=== PATIENT | male | born 1995 | race Hispanic/Latino ===

== ENCOUNTER 2021-03-23 06:51 | Emergency (ER) | payer SELFPAY ==
[2021-03-23 07:35] LABS: Absolute Lymphocytes (CBC) 3.2 K/uL (0.7-4.9); Basophils % 1.3 % (0-1.3); Lymphocytes % 16.8 % (15.3-44.8); MPV 8.9 fL (7.6-11.3); RBC Red Blood Cell Count 1.13 M/uL (4.33-5.43)
--- NOTE | 2021-03-23 07:40 | EDPHYS ---
Physician Documentation [facility] Name: Gabe Ulrich Age: 25 yrs Sex: Male : 1995 Arrival Date: 03/23/2021 Time: 07:00 Bed 6 Private MD: ED Physician Martínez Perez HPI: 03/23 07:34 This 25 yrs old Male presents to ER via Ambulatory with complaints of vomiting heike blood. 07:34 The patient presents to the emergency department vomiting blood, a large amount, coffee heike grounds in nature. Onset: The symptoms/episode began/occurred just prior to arrival, this morning. Abdominal pain: described as crampy. Modifying factors: The symptoms are alleviated by nothing, the symptoms are aggravated by nothing. Details of fall: The patient fell from an upright position, while standing, while walking. Onset: The symptoms/episode began/occurred at an unknown time. Associated injuries: The patient sustained injury to the head, neck injury, upper back injury, injury to the low back, injury to the chest, injury to the abdomen. The patient presents with confusion, decreased mental status, decreased responsiveness, trouble concentrating. Onset: The symptoms/episode began/occurred today. Possible causes: drug use, alcohol, head injury, low blood sugar. Historical: - Allergies: 07:15 Unable to obtain; rr5 - Home Meds: 07:15 Unable to obtain [Active]; rr5 - PMHx: 07:15 Unable to obtain; rr5 - PSHx: 07:15 Unable to obtain; rr5 - Immunization history:: Adult Immunizations unknown. - Social history:: Smoking status: unknown. - Family history:: not pertinent. ROS: 07:34 Neck: Negative for injury, pain, and swelling. heike 07:34 Constitutional: Positive for fatigue, malaise. 07:34 Eyes: Positive for icterus. 07:34 Cardiovascular: Positive for palpitations. 07:34 Unable to obtain ROS due to altered mental status, patient being uncooperative. Exam: 07:34 Head/Face: Normocephalic, atraumatic. Respiratory: Lungs have equal breath sounds heike bilaterally, clear to auscultation and percussion. No rales, rhonchi or wheezes noted. No increased work of breathing, no retractions or nasal flaring. 07:34 Head/face: Noted is contusion. 07:34 Eyes: Sclera: icterus. 07:34 Cardiovascular: Rate: tachycardic, Rhythm: regular, Pulses: Pulses are 4+ in bilateral radial, brachial, femoral, popliteal, posterior tibial and and dorsalis pedis arteries.. Heart sounds: normal, Edema: 1+ edema to level of left midcalf and right midcalf, JVD: is noted bilaterally, to 1 cm. 07:34 ECG was reviewed by the Attending Physician. Vital Signs: 06:50 BP 98 / 34; Pulse 109; Resp 19; Pulse Ox 99% on R/A; ea 07:18 Temp 97; ea 07:57 BP 97 / 57; Pulse 120; Resp 18; Pulse Ox 100% on R/A; tr6 [place] Coma Score: 09:18 Eye Response: to voice(3). Verbal Response: confused(4). Motor Response: localizes iw pain(5). Total: 12. Procedures: 09:44 Central Line: the site was prepped with Betadine, a triple lumen catheter was inserted, heike in the right in 2 attempts. placement was verified, by blood return, the site was dressed with using sterile technique, the patient tolerated the procedure, well. MDM: 07:19 Patient medically screened. heike 08:18 Differential diagnosis: gastritis, hemorrhagic shock, varices. Differential diagnosis: heike closed head injury, contusion, fracture, multiple trauma, sprain, CVA, electrolyte abnormality, alcohol intoxication, intracranial bleed, pneumonia, sepsis, TIA, UTI, volume depletion. Data reviewed: vital signs, nurses notes, EMS record, lab test result(s), EKG, radiologic studies, CT scan, plain films. Data interpreted: night monitor: rate is 120 beats/min, rhythm is regular, Pulse oximetry: on room air is 100 %. Test interpretation: by ED physician or midlevel provider: ECG, plain radiologic studies. Counseling: I had a detailed discussion with the patient and/or guardian regarding: the historical points, exam findings, and any diagnostic results supporting the discharge/admit diagnosis, lab results, radiology results, the need to transfer to another facility, for higher level of care, [facility] does not immediately have the required specialist. 03/23 07:16 Order name: Basic Metabolic Panel 03/23 07:16 Order name: CBC with Diff 03/23 07:16 Order name: LFT's 03/23 07:16 Order name: Magnesium; Complete Time: 09:06 03/23 07:16 Order name: NT PRO-BNP; Complete Time: 09:06 03/23 07:16 Order name: PT-INR; Complete Time: 09:08 03/23 07:16 Order name: Troponin (emerg Dept Use Only); Complete Time: 09:06 03/23 07:16 Order name: Type And Screen 03/23 07:16 Order name: Basic Metabolic Panel; Complete Time: 09:06 [facility] 03/23 07:16 Order name: CBC with Automated Diff; Complete Time: 08:18 [facility] 03/23 07:16 Order name: Liver (Hepatic) Function; Complete Time: 09:06 [facility] 03/23 07:28 Order name: Occult Blood--Ancillary 03/23 07:28 Order name: AMMONIA; Complete Time: 08:18 [facility] 03/23 07:16 Order name: XRAY Chest (1 view) 03/23 07:28 Order name: CT Traumagram (Head C Spine CAP wo con); Complete Time: 09:06 [facility] 03/23 07:32 Order name: Acetaminophen; Complete Time: 09:06 [facility] 03/23 07:32 Order name: ETOH Level; Complete Time: 08:18 [facility] 03/23 07:32 Order name: Ptt, Activated; Complete Time: 09:08 [facility] 03/23 07:32 Order name: Salicylate; Complete Time: 09:06 [facility] 03/23 07:39 Order name: Fresh Frozen Plasma [facility] 03/23 07:39 Order name: Packed RBC Leukored [facility] 03/23 07:42 Order name: Bb Add On 03/23 08:01 Order name: ABO/RH no charge [facility] 03/23 09:06 Order name: SARS-COV-2 RT PCR; Complete Time: 09:06 [facility] 03/23 07:16 Order name: EKG; Complete Time: 07:16 03/23 07:16 Order name: Cardiac monitoring; Complete Time: 09:53 03/23 07:16 Order name: EKG - Nurse/Tech; Complete Time: 07:16 03/23 07:16 Order name: IV Saline Lock; Complete Time: 07:16 03/23 07:16 Order name: Labs collected and sent; Complete Time: 07:16 ea 03/23 07:16 Order name: O2 Per Protocol; Complete Time: 07:16 ea 03/23 07:16 Order name: O2 Sat Monitoring; Complete Time: 07:17 ea 03/23 07:28 Order name: IV Saline Lock - Large Bore; Complete Time: 07:39 heike 03/23 07:28 Order name: Shaw; Complete Time: 09:56 heike 03/23 07:28 Order name: Transfuse; Complete Time: 09:53 [facility] EC:34 Rate is 121 beats/min. Rhythm is regular. QRS [place] is Normal. MS interval is normal. heike QRS interval is normal. QT interval is normal. T waves are Normal. No ST changes noted. Clinical impression: Sinus tachycardia. Interpreted by me. Reviewed by me. Administered Medications: 07:39 Drug: ProTONIX (pantoprazole) 8 mg/hr Route: IV; Rate: 25 ml/hr; Site: right tr6 antecubital; 07:49 Drug: ProTONIX (pantoprazole) 80 mg Route: IVP; Site: right antecubital; tr6 07:50 Drug: NS 0.9% 1000 ml Route: IV; Rate: 1 bolus; Site: left antecubital; tr6 07:52 Drug: Thiamine 100 mg Route: IV; Rate: bolus; Site: left hand; iw 08:25 Drug: SandoSTATIN (octreotide) 50 mcg Route: IV; Rate: calculated rate; Site: left hand;tr6 08:25 Drug: SandoSTATIN (octreotide) 25 mcg/h Route: IV; Rate: calculated rate; Site: left tr6 hand; 09:51 Drug: Ativan (LORazepam) 1 mg Route: IVP; Site: left hand; tr6 09:51 Drug: Rocephin (cefTRIAXone) 1 grams Route: IV; Rate: per protocol; Site: right femoral;tr6 09:52 Drug: Vitamin K1 (phytonadione) 10 mg Route: Sub-Q; Site: abdomen; tr6 09:53 Drug: NS 0.9% 1000 ml Route: IV; Rate: 125 ml/hr; Site: right antecubital; tr6 10:21 CANCELLED (error): Sodium Bicarbonate 1 amp IVP in Other once; (50 mL); equals 50 mEq tr6 10:21 CANCELLED (error): Sodium Bicarbonate 1 amp IVP in Other once; (50 mL); equals 50 mEq tr6 10:23 CANCELLED (error): EPINEPHrine 0.1mg/mL 1:10,000 1 mg IVP in Other once tr6 10:23 CANCELLED (error): EPINEPHrine 0.1mg/mL 1:10,000 1 mg IVP in Other once tr6 10:23 CANCELLED (error): EPINEPHrine 0.1mg/mL 1:10,000 1 mg IVP in Other once tr6 10:24 CANCELLED (error): EPINEPHrine 0.1mg/mL 1:10,000 1 mg IVP in Other once tr6 10:25 CANCELLED (error): EPINEPHrine 0.1mg/mL 1:10,000 1 mg IVP in Other once tr6 Disposition: 08:21 Critical Care:. heike Disposition: 03/23/21 07:40 Transfer ordered to Other Acute Care Facility. Diagnosis are Gastrointestinal hemorrhage, unspecified - upper, Alcoholic cirrhosis of liver without ascites, Repeated falls, Alcohol abuse, Anemia, unspecified. - Reason for transfer: Higher level of care. - Accepting physician is to icu, acute care. - Condition is Critical. - Problem is an acute exacerbation. - Symptoms have improved. Critical care time excluding procedures: 08:21 Critical care time: Bedside Care: 35 minutes, Consultation: 10 minutes, Family heike Intervention: 10 minutes. Total time: 55 minutes Signatures: Dispatcher [employer] EDMartínez Ko MD MD cha Williams, Irene, RN RN iw Antunez, Elena, RN RN ea Roque, Raymond, RN RN rr5 Francie Curtis RN RN tr6 Corrections: (The following items were deleted from the chart) 07:46 07:29 FRESH FROZEN PLASMA+BB.LAB.BRZ ordered. [facility] EDNV 07:46 07:29 ABO/RH typing ordered. [facility] 08:14 07:31 CORONAVIRUS+MR.LAB.BRZ ordered. [facility] EDNV : 10:18 Sodium Bicarbonate 1 amp IVP in Other once; (50 mL); equals 50 mEq given. tr6 tr6 10: 10:18 Sodium Bicarbonate 1 amp IVP in Other once; (50 mL); equals 50 mEq given. tr6 tr6 10:21 10:21 Sodium Bicarbonate 1 amp IVP in Other once; (50 mL); equals 50 mEq ordered. tr6 tr6 10:21 10:21 Sodium Bicarbonate 1 amp IVP in Other once; (50 mL); equals 50 mEq ordered. tr6 tr6 10:23 10:17 EPINEPHrine 0.1mg/mL 1:10,000 1 mg IVP in Other once given. tr6 tr6 10: 10:17 EPINEPHrine 0.1mg/mL 1:10,000 1 mg IVP in Other once given. tr6 tr6 10:23 10:17 EPINEPHrine 0.1mg/mL 1:10,000 1 mg IVP in Other once given. tr6 tr6 10: 10:21 EPINEPHrine 0.1mg/mL 1:10,000 1 mg IVP in Other once ordered. tr6 tr6 10:23 10:21 EPINEPHrine 0.1mg/mL 1:10,000 1 mg IVP in Other once ordered. tr6 tr6 10:23 10:22 EPINEPHrine 0.1mg/mL 1:10,000 1 mg IVP in Other once ordered. tr6 tr6 10:24 10:16 EPINEPHrine 0.1mg/mL 1:10,000 1 mg IVP in Other once given. tr6 tr6 10:24 10:21 EPINEPHrine 0.1mg/mL 1:10,000 1 mg IVP in Other once ordered. tr6 tr6 10:25 10:16 EPINEPHrine 0.1mg/mL 1:10,000 1 mg IVP in Other once given. tr6 tr6 10:25 10:22 EPINEPHrine 0.1mg/mL 1:10,000 1 mg IVP in Other once ordered. tr6 tr6 11:01 07:40 03/23/2021 07:40 Transfer ordered to Other Acute Care Facility. Diagnosis is iw Gastrointestinal hemorrhage, unspecified - upper; Alcoholic cirrhosis of liver without ascites; Repeated falls; Alcohol abuse; Anemia, unspecified. Reason for transfer: Higher level of care. Accepting physician is to icu, acute care. Condition is Critical. Problem is an acute exacerbation. Symptoms have improved. heike
--- NOTE | 2021-03-23 07:40 | ER ---
Nurse's Notes [facility] Name: Gabe Ulrich Age: 25 yrs Sex: Male : 1995 Arrival Date: 03/23/2021 Time: 07:00 Bed 6 Private MD: Diagnosis: Gastrointestinal hemorrhage, unspecified-upper;Alcoholic cirrhosis of liver without ascites;Repeated falls;Alcohol abuse;Anemia, unspecified Presentation: 03/23 06:50 Chief complaint: EMS states: Family called EMS, reported he was unresponsive, family ea stated pt was vomiting blood. Family stated pt has kidney issues and drank a six pack yesterday evening. Pt reported he has been vomiting blood for the past two weeks. Coronavirus screen: At this time, the client does not indicate any symptoms associated with coronavirus-19. Ebola Screen: No symptoms or risks identified at this time. 06:50 Method Of Arrival: Ambulatory ea 07:17 Initial Sepsis Screen: Does the patient meet any 2 criteria? Mean Arterial Pressure ea (MAP) < 65. Does the patient have a suspected source of infection? No. Patient's initial sepsis screen is negative. Risk Assessment: Do you want to hurt yourself or someone else? Patient reports no desire to harm self or others. Onset of symptoms was March 23, 2021. 07:17 Acuity: DEBBIE 3 ea 07:46 Acuity: DEBBIE 2 iw Triage Assessment: 07:17 General: Appears in no apparent distress. Behavior is drowsy. Pain: Denies pain. Neuro: ea Level of Consciousness is lethargic, Oriented to person. Respiratory: Airway is patent Respiratory effort is even, unlabored, Respiratory pattern is regular, symmetrical. Derm: Skin is dry, Skin is pale, Skin temperature is warm Bruising that is dark purple, on back and abdomen +2 pitting edema noted to los lower extremities. Historical: - Allergies: 07:15 Unable to obtain; rr5 - Home Meds: 07:15 Unable to obtain [Active]; rr5 - PMHx: 07:15 Unable to obtain; rr5 - PSHx: 07:15 Unable to obtain; rr5 - Immunization history:: Adult Immunizations unknown. - Social history:: Smoking status: unknown. - Family history:: not pertinent. Screenin:15 Abuse screen: Denies threats or abuse. Denies injuries from another. Nutritional rr5 screening: No deficits noted. Tuberculosis screening: No symptoms or risk factors identified. Fall Risk IV access (20 points). Total [place] Fall Scale indicates No Risk (0-24 pts). Assessment: 08:00 General: Appears ill, unkempt, Behavior is calm, uncooperative, Smells of alcohol. tr6 Pain: Denies pain. Neuro: Level of Consciousness is lethargic, stuporous, Reaction to noxious stimuli is. Cardiovascular: Capillary refill < 3 seconds Clubbing of nail beds is present JVD is absent Rhythm is sinus tachycardia. Cardiovascular: Edema is 3+ to left midcalf, left ankle, left foot, left toes, right midcalf, right ankle, right foot and right toes pitting to left midcalf, left ankle, left foot, left toes, right midcalf, right ankle, right foot and right toes. Respiratory: No deficits noted. Airway is patent Trachea midline Respiratory effort is even, unlabored, relaxed. GI: Last BM was March 23, 2021. Abd is soft and non tender pt cleaned of bowel incontinence. black soft stool noted and tested. guiac positive. : No deficits noted. EENT: Sclera/Cornea yellow sclera. Derm: Skin is dry, Skin is pale, Skin temperature is warm Bruising that is dark purple, pt has bruises noted over his body. left upper back, and diffusely on b/l legs and arms. Musculoskeletal: No deficits noted. 09:10 Reassessment: mother at bedside, mother signed consent for blood transfusion and FFP. iw Vital Signs: 06:50 BP 98 / 34; Pulse 109; Resp 19; Pulse Ox 99% on R/A; ea 07:18 Temp 97; ea 07:57 BP 97 / 57; Pulse 120; Resp 18; Pulse Ox 100% on R/A; tr6 [place] Coma Score: 09:18 Eye Response: to voice(3). Verbal Response: confused(4). Motor Response: localizes iw pain(5). Total: 12. ED Course: 07:00 Patient arrived in ED. bb 07:01 Shanice Deluca, RN is Primary Nurse. kg 07:08 Inserted saline lock: 18 gauge in right antecubital area, using aseptic technique. kg 07:08 Inserted saline lock: 20 gauge in left antecubital area, using aseptic technique. kg 07:15 Arm band placed on right wrist. rr5 07:16 Patient has correct armband on for positive identification. Placed in gown. Bed in low rr5 position. Call light in reach. Side rails up X2. chain dyer on. Pulse ox on. NIBP on. 07:17 Triage completed. ea 07:19 Martínez Perez MD is Attending Physician. heike 07:44 initiated a transfer with Ced Martell Rn from the [facility]. eb 07:49 Inserted saline lock: 18 gauge in left hand, using aseptic technique. Blood collected. tr6 07:50 No provider procedures requiring assistance completed. tr6 07:[address] by charge operator and CT. tr6 07:58 XRAY Chest (1 view) In Process Unspecified. EDMS 08:23 CT Traumagram (Head C Spine CAP wo con) In Process Unspecified. EDMS 08:37 Ced called from the [facility] to decline the patient in transfer eb due to being at capacity in the [facility] and [facility] locations. 08:46 initiated a transfer with Maggie from the [facility] [place]. eb 08:[address] Perez with Rody Hankins from the [facility] Transfer Center. eb 09:05 connected the music therapy teacher filler leaf cutter long for [facility] with Dr. Perez for patient transfer consultation. 09:11 administrative approval given by Maggie Sheets Rn/ patient has been accepted to the [facility] transplant ICU/ Dr. Patton has accepted the patient in transfer/ report to be called to [phone]/ Maggie from the transfer center will dispatch their helicopter and someone will call us with an eta. 09:50 Inserted right femoral triple lumen central line placed by MD Brianne Perez. OK to use tr6 access per MD Perez. Patient maintains SpO2 saturation greater than 95% on room air. 09:54 Shaw cath inserted, using sterile technique, 16 Fr., by co, balloon inflated, to tr6 gravity drainage, other inserted by CLARICE Curtis with MD Perez present, urine returned. no specimen collected at this time. site clean, dry, and intact. stat lock placed to left upper thigh. 10:07 Patient transferred, IV remains in place. intact. tr6 11:00 Ramnanan, Francie, RN is Primary Nurse. iw Administered Medications: 07:39 Drug: ProTONIX (pantoprazole) 8 mg/hr Route: IV; Rate: 25 ml/hr; Site: right tr6 antecubital; 07:49 Drug: ProTONIX (pantoprazole) 80 mg Route: IVP; Site: right antecubital; tr6 07:50 Drug: NS 0.9% 1000 ml Route: IV; Rate: 1 bolus; Site: left antecubital; tr6 07:52 Drug: Thiamine 100 mg Route: IV; Rate: bolus; Site: left hand; iw 08:25 Drug: SandoSTATIN (octreotide) 50 mcg Route: IV; Rate: calculated rate; Site: left hand;tr6 08:25 Drug: SandoSTATIN (octreotide) 25 mcg/h Route: IV; Rate: calculated rate; Site: left tr6 hand; 09:51 Drug: Ativan (LORazepam) 1 mg Route: IVP; Site: left hand; tr6 09:51 Drug: Rocephin (cefTRIAXone) 1 grams Route: IV; Rate: per protocol; Site: right femoral;tr6 09:52 Drug: Vitamin K1 (phytonadione) 10 mg Route: Sub-Q; Site: abdomen; tr6 09:53 Drug: NS 0.9% 1000 ml Route: IV; Rate: 125 ml/hr; Site: right antecubital; tr6 10:21 CANCELLED (error): Sodium Bicarbonate 1 amp IVP in Other once; (50 mL); equals 50 mEq tr6 10:21 CANCELLED (error): Sodium Bicarbonate 1 amp IVP in Other once; (50 mL); equals 50 mEq tr6 10:23 CANCELLED (error): EPINEPHrine 0.1mg/mL 1:10,000 1 mg IVP in Other once tr6 10:23 CANCELLED (error): EPINEPHrine 0.1mg/mL 1:10,000 1 mg IVP in Other once tr6 10:23 CANCELLED (error): EPINEPHrine 0.1mg/mL 1:10,000 1 mg IVP in Other once tr6 10:24 CANCELLED (error): EPINEPHrine 0.1mg/mL 1:10,000 1 mg IVP in Other once tr6 10:25 CANCELLED (error): EPINEPHrine 0.1mg/mL 1:10,000 1 mg IVP in Other once tr6 Outcome: 07:40 ER care complete, transfer ordered by MD. burroughs 09:53 Transferred by helicopter tr6 10:05 Transferred tr6 10:05 critical 10:05 Instructed on follow up and referral plans. the need for transfer. 10:05 Critical Care visit due to low hgb. instructions on need for transfer reviewed with pts mother by MD Perez. pt transported by life flight. 2 u PRBC and 2 u FFP infused. 11:01 Patient left the ED. iw Signatures: Dispatcher [employer] EDMS Martínez Perez MD MD cha Ballard, Brenda, RN RN bb Hannah Morris, CLARICE ONEIL iw Portia Posada RN Cheyanne Givens ea, Raymond RN RN rr5 Francie Curtis RN RN tr6 Shanice Deluca RN RN kg Corrections: (The following items were deleted from the chart) 07:20 07:17 Derm: Skin is dry, Skin is pale, Skin temperature is warm Bruising that is dark ea purple, on back and abdomen ea 10:21 08:36 EPINEPHrine 0.1mg/mL 1:10,000 1 mg IVP in Other tr6 tr6 10: 08:42 EPINEPHrine 0.1mg/mL 1:10,000 1 mg IVP in Other tr6 tr6 10: 08:45 EPINEPHrine 0.1mg/mL 1:10,000 1 mg IVP in Other tr6 tr6 10: 08:38 Sodium Bicarbonate 1 amp IVP in Other tr6 tr6 10: 08:42 Sodium Bicarbonate 1 amp IVP in Other tr6 tr6 10:22 08:32 EPINEPHrine 0.1mg/mL 1:10,000 1 mg IVP in Other tr6 tr6 10: 08:38 EPINEPHrine 0.1mg/mL 1:10,000 1 mg IVP in Other tr6 tr6 10: 08:32 CPR assessment: intubated, pale, pt arrived to ED, CPR in progress via vickie tr6 device. pt transferred to ED stretcher and CPR continued. 5 rounds of epi given. 2 doses of calcium given. 2 doses of bi carb given. tr6
[2021-03-23 07:42] LABS: Hematocrit 11.4 % (39.6-49.0)
[2021-03-23] MEDS ORDERED: ONDANSETRON 4 MG/2 ML VIAL ONE ×2 (07:46→08:09)
[2021-03-23] MEDS ORDERED: NA CHLORIDE 0.9% 100 ML ONE (07:47)
[2021-03-23] MEDS ORDERED: PANTOPRAZOLE 40 MG INJ ONE (07:47)
[2021-03-23] MEDS ORDERED: OCTREOTIDE ACETATE 100 MCG/ML ONE (07:48)
[2021-03-23] MEDS ORDERED: NA CHLORIDE 0.9% 250 ML ONE ×2 (07:50→09:31)
[2021-03-23 07:57] LABS: Protime INR 2.04
[2021-03-23] MEDS ORDERED: NA CHLORIDE 0.9% 2,000 ML ONE (07:59)
[2021-03-23] MEDS ORDERED: VITAMIN K (ADULT) 10 MG/ML ONE (07:59)
[2021-03-23] MEDS ORDERED: OCTREOTIDE 500 MCG in NA CHLORIDE 0.9% 500 ML IV SCH (08:00)
[2021-03-23] MEDS ORDERED: LORazepam 2 MG/ML VIAL ONE ×2 (08:09→08:13)
[2021-03-23] MEDS ORDERED: THIAMINE 200 MG/2 ML INJ ONE (08:10)
[2021-03-23 08:16] LABS: ALT/SGPT 30 U/L (12-78); AST/SGOT 124 U/L (15-37); Albumin 1.7 g/dL (3.4-5.0); Alkaline Phosphatase 151 U/L (45-117); BUN Blood Urea Nitrogen 40 mg/dL (7-18); Bicarbonate 24 mmol/L (21-32); Bilirubin Total 2.5 mg/dL (0.2-1.0); Glucose Level 96 mg/dL (74-106); Magnesium 2.3 mg/dL (1.8-2.4); NT PRO-BNP 90 pg/mL (<125); Potassium 5.1 mmol/L (3.5-5.1); Sodium Level 138 mmol/L (136-145); Troponin (Emerg Dept Use Only) 0.07 ng/mL (0.0-0.045)
--- NOTE | 2021-03-23 08:37 | RAD REPORT ---
EXAM DESCRIPTION: CT - Head C Spine Cap Wo Con - 03/23/2021 8:23 am TECHNIQUE: Computed axial tomography of the head and cervical spine was obtained. Coronal and sagitt al reconstruction was performed Computed axial tomography of the chest, abdomen and pelvis was obtained. Contrast was not requested. All CT scans are performed using dose optimization technique as appropriate and may include automated exposure control or mA/KV adjustment according to patient size. CLINICAL HISTORY: Head and neck pain. With chest and abdominal pain COMPARISON: None FINDINGS: An intracranial bleed is not seen. The ventricles are normal in caliber. An extra-axial fluid collection is not noted. . Fluid within the sinuses/mastoids is not seen. A cervical fracture is not seen. No dislocation is noted. The evaluation of mediastinum, roland, vessels, solid organs and bowel are limited secondary to the lac k of contrast administration. A mediastinal hematoma is not noted. A pleural effusion is not seen. A lung contusion is not present. Cirrhotic liver. Pancreas is normal size. Mild stranding within the peripancreatic fat. The spleen, adrenals and kidneys are unremarkable. Mild thickening of the wall most of the colon. Small amount of ascites IMPRESSION: 1. No acute intracranial abnormality is seen. 2. A cervical fracture is not visualized. If the patient continues have symptoms to suggest intracran ial/spinal cord pathology MRI be recommended 3. Cirrhosis 4. Mild pancreatitis 5. Apparent thickening of the wall of most of the colon probably secondary to incomplete distention o r hypoalbuminemia. Mild colitis can also have this appearance.
[2021-03-23] MEDS ORDERED: CEFTRIAXONE/SWI 1gm 1 GM/10 ML SYR ONE (09:49)
--- NOTE | 2021-03-23 11:11 | RAD REPORT ---
EXAM DESCRIPTION: Trupti Single View03/23/2021 8:00 am CLINICAL HISTORY: Chest pain COMPARISON: none FINDINGS: The lungs appear clear of acute infiltrate. The heart is normal size IMPRESSION: No acute abnormalities displayed
[2021-03-23 11:12] VITALS: TEMP 97
[2021-03-23 11:14] VITALS: BP 97/57; O2SAT 100
--- NOTE | 2021-03-24 15:51 | EKG ---
Test Date: 2021-03-23 Test Time: 07:18:49 Annual Giving Director: TAMARA MEASUREMENT RESULTS: Intervals: Rate: 106 IA: 130 QRSD: 78 QT: 364 QTc: 483 [place]: P: 64 IA: 130 QRS: 50 T: 52 INTERPRETIVE STATEMENTS: Sinus tachycardia Otherwise normal ECG No previous ECG available for comparison Electronically Signed On 03-24-21 15:47:25 CDT by Kedar Muller
== END 2021-03-23 11:01 ==
LOC: ER 06:51 → EDBD 06:51 → ER 11:01
DX: K92.0 Hematemesis (principal); K70.30 Alcoholic cirrhosis of liver without ascites; F10.10 Alcohol abuse, uncomplicated; D64.9 Anemia, unspecified; R29.6 Repeated falls; Y90.1 Blood alcohol level of 20-39 mg/100 ml; Z20.822 Contact with and (suspected) exposure to COVID-19
CPT/HCPCS: 36415; 51702; 70450; 71045; 71250; 72125; 80048; 80076; 80320; 80329; 82140; 82272; 83735; 83880; 84484; 85025; 85610; 85730; 86850; 86900; 86901; 93005; 96372; 99285; C9113; J0696; J2354; J2405; J3411; J3430; J7030; J7040; J7050; P9016; P9059; U0003

== ENCOUNTER 2021-11-12 18:15 | Emergency (ER) | payer OTHER, SELFPAY ==
--- OUTSIDE RECORDS SUMMARY | 2021-11-12 18:17 | XMS REPORT | Continuity of Care Document ---
:[address] [facility] t Address [address] [place] [address] [address] [place] [address] Care Team Providers Name Role Phone Chuck Flores MD Attending Clinician Ligia LUO Attending Clinician Unavailable LORENA AWAD Admitting Clinician Unavailable Payers Payer Name Policy Type Policy Number Effective Date Expiration Date S ource Problems This patient has no known problems. Allergies, Adverse Reactions, Alerts Allergy Allergy Status Severity Reaction(s) Onset Inactive Treating Comm ents Source Name Type Date Date Clinician NO KNOWN Drug Active [facility] Social [facility] Social Habit Start Date Stop Date Quantity Comments Source Sex Assigned At [birth year] [facility] 00:00:00 00:00:00 Smoking Status Start Date Stop Date Source Tobacco smoking consumption unknown [facility] Medications This patient has no known medications. Procedures This patient has no known procedures. Encounters Start End Encounter Admission Attending Care Care Encounter Source Date/Time Date/Time Type Type Clinicians Facility Department ID 2021-03-23 2021-03-23 EXT [facility] OP CHERYL Flores MSRDP [id number] [place] 00:00:00 00:00:00 Chuck Martinez LOCATION [id number] [facility] [id number] 2021-03-14 2021-03-14 Outpatient X NERI LUO [facility] [id number] [facility] 21:08:00 21:08:00 MAURI [facility] Results This patient has no known results.
[2021-11-12] MEDS ORDERED: NA CHLORIDE 0.9% 250 ML ONE (18:36)
[2021-11-12] MEDS ORDERED: PANTOPRAZOLE 40 MG INJ ONE ×2 (18:36)
[2021-11-12] MEDS ORDERED: NA CHLORIDE 0.9% 1,000 ML ONE (18:37)
[2021-11-12] MEDS ORDERED: ONDANSETRON 4 MG/2 ML VIAL ONE ×2 (18:40→18:55)
[2021-11-12 18:45] LABS: Absolute Lymphocytes (CBC) 1.9 K/uL (0.7-4.9); Hematocrit 23.3 % (39.6-49.0); Lymphocytes % 18.1 % (15.3-44.8); MPV 7.3 fL (7.6-11.3); Protime INR 1.39; RBC Red Blood Cell Count 2.83 M/uL (4.33-5.43)
[2021-11-12] MEDS ORDERED: OCTREOTIDE ACETATE 100 MCG/ML ONE (18:46)
[2021-11-12] MEDS ORDERED: OCTREOTIDE 500 MCG in NA CHLORIDE 0.9% 500 ML IV SCH (19:00)
[2021-11-12] MEDS ORDERED: NA CHLORIDE 0.9% 0 ML ONE (19:15)
[2021-11-12 19:19] LABS: ALT/SGPT 31 U/L (12-78); AST/SGOT 118 U/L (15-37); Albumin 1.7 g/dL (3.4-5.0); Alkaline Phosphatase 136 U/L (45-117); BUN Blood Urea Nitrogen 68 mg/dL (7-18); Bicarbonate 20 mmol/L (21-32); Bilirubin Direct 0.8 mg/dL (0-0.2); Bilirubin Total 1.4 mg/dL (0.2-1.0); Glucose Level 122 mg/dL (74-106); Magnesium 2.2 mg/dL (1.8-2.4); NT PRO-BNP 53 pg/mL (<125); Potassium 4.7 mmol/L (3.5-5.1); Protein, Total 6.4 g/dL (6.4-8.2); Sodium Level 132 mmol/L (136-145)
--- NOTE | 2021-11-12 19:47 | EDPHYS ---
Physician Documentation [facility] Name: Gabe Ulrich Age: 26 yrs Sex: Male : 1995 Arrival Date: 11/12/2021 Time: 18:19 Bed 4 Private MD: ED Physician Martínez Perez HPI: 11/12 18:36 This 26 yrs old Male presents to ER via EMS with complaints of GI Bleeding. kdr 18:36 The patient presents to the emergency department vomiting blood, a moderate amount. He kdr reports he has been vomiting blood for 3 days with dark-colored emesis and black tarry stools. EMS reported his blood pressure was 88/45 and that he had been taking a lot of Tylenol recently for his stomach pain. Historical: - Allergies: 18:30 No Known Allergies; jd3 - Home Meds: 18:30 Unable to obtain [Active]; jd3 - PMHx: 18:30 Unable to Obtain; jd3 - PSHx: 18:30 Unable to Obtain; jd3 - Immunization history:: Adult Immunizations unknown. - Social history:: Smoking status: unknown. ROS: 19:41 Constitutional: Negative for fever, chills, and weight loss, Eyes: Negative for injury, heike pain, redness, and discharge, ENT: Negative for injury, pain, and discharge, Neck: Negative for injury, pain, and swelling, Cardiovascular: Negative for chest pain, palpitations, and edema, Respiratory: Negative for shortness of breath, cough, wheezing, and pleuritic chest pain, Back: Negative for injury and pain, : Negative for injury, bleeding, discharge, and swelling, MS/Extremity: Negative for injury and deformity, Skin: Negative for injury, rash, and discoloration, Neuro: Negative for headache, weakness, numbness, tingling, and seizure, Psych: Negative for depression, anxiety, suicide ideation, homicidal ideation, and hallucinations, Allergy/Immunology: Negative for hives, rash, and allergies, Endocrine: Negative for neck swelling, polydipsia, polyuria, polyphagia, and marked weight changes. 19:41 Abdomen/GI: Positive for nausea, vomiting, abdominal cramps, hematemesis. 19:41 Neuro: Positive for weakness. Exam: 19:41 Constitutional: This is a well developed, well nourished patient who is awake, alert, heike and in no acute distress. Head/Face: Normocephalic, atraumatic. Eyes: Pupils equal round and reactive to light, extra-ocular motions intact. Lids and lashes normal. Conjunctiva and sclera are non-icteric and not injected. Cornea within normal limits. Periorbital areas with no swelling, redness, or edema. ENT: Nares patent. No nasal discharge, no septal abnormalities noted. Tympanic membranes are normal and external auditory canals are clear. Oropharynx with no redness, swelling, or masses, exudates, or evidence of obstruction, uvula midline. Mucous membranes moist. Neck: Trachea midline, no thyromegaly or masses palpated, and no cervical lymphadenopathy. Supple, full range of motion without nuchal rigidity, or vertebral point tenderness. No Meningismus. Chest/axilla: Normal chest wall appearance and motion. Nontender with no deformity. No lesions are appreciated. Cardiovascular: Regular rate and rhythm with a normal S1 and S2. No gallops, murmurs, or rubs. Normal PMI, no JVD. No pulse deficits. Respiratory: Lungs have equal breath sounds bilaterally, clear to auscultation and percussion. No rales, rhonchi or wheezes noted. No increased work of breathing, no retractions or nasal flaring. Back: No spinal tenderness. No costovertebral tenderness. Full range of motion. Male : Normal genitalia with no discharge or lesions. Skin: Warm, dry with normal turgor. Normal color with no rashes, no lesions, and no evidence of cellulitis. MS/ Extremity: Pulses equal, no cyanosis. Neurovascular intact. Full, normal range of motion. Neuro: Awake and alert, GCS 15, oriented to person, place, time, and situation. Cranial nerves II-XII grossly intact. Motor strength 5/5 in all extremities. Sensory grossly intact. Cerebellar exam normal. Normal gait. Psych: Awake, alert, with orientation to person, place and time. Behavior, mood, and affect are within normal limits. 19:41 ECG was reviewed by the Attending Physician. 19:41 Abdomen/GI: Inspection: abdomen appears normal, Bowel sounds: normal, Palpation: mild abdominal tenderness, in all quadrants, Rectal exam: rectal tone normal, Stool: guaiac positive, black, hemorrhoid(s), are not appreciated, mass, is not appreciated, swelling, is not appreciated, Liver: is enlarged, Hernia: not appreciated. Vital Signs: 18:30 BP 93 / 42; Pulse 98; Resp 16 S; Temp 100.6(TE); Pulse Ox 99% on R/A; Pain 10/10; jd3 19:01 BP 118 / 50; Pulse 111; Resp 18; Pulse Ox 100% on R/A; ld1 19:25 BP 114 / 68; Pulse 107; Resp 15; Temp 100(O); Pulse Ox 100% ; mk 19:34 Weight 80 kg; mw2 19:56 BP 118 / 69; Pulse 110; Resp 16; Temp 100.0(TE); Pulse Ox 100% on R/A; iw 20:15 BP 123 / 62; Pulse 108; Resp 13; Pulse Ox 100% ; mk 20:30 BP 128 / 62; Pulse 109; Resp 14; Pulse Ox 100% ; mk 20:45 BP 109 / 54; Pulse 112; Resp 17; Pulse Ox 100% ; mk 21:00 BP 111 / 50; Pulse 117; Resp 11; Pulse Ox 100% ; mk 21:15 BP 112 / 64; Pulse 116; Resp 11; Pulse Ox 98% ; mk 21:30 BP 122 / 62; Pulse 114; Resp 18; Pulse Ox 100% ; mk 21:39 BP 89 / 60; Pulse 109; Resp 18; Temp 101.0(O); Pulse Ox 100% ; al4 21:44 BP 97 / 63; Pulse 114; Resp 15 S; Temp 100.6; Pulse Ox 100% on R/A; al4 21:49 BP 119 / 57; Pulse 111; Resp 14 S; Temp 100.8; Pulse Ox 100% ; al4 Mira Coma Score: 20:15 Eye Response: spontaneous(4). Verbal Response: oriented(5). Motor Response: obeys mk commands(6). Total: 15. 20:30 Eye Response: spontaneous(4). Verbal Response: oriented(5). Motor Response: obeys mk commands(6). Total: 15. 20:45 Eye Response: spontaneous(4). Verbal Response: oriented(5). Motor Response: obeys mk commands(6). Total: 15. 21:00 Eye Response: spontaneous(4). Verbal Response: oriented(5). Motor Response: obeys mk commands(6). Total: 15. 21:15 Eye Response: spontaneous(4). Verbal Response: oriented(5). Motor Response: obeys mk commands(6). Total: 15. 21:30 Eye Response: spontaneous(4). Verbal Response: oriented(5). Motor Response: obeys mk commands(6). Total: 15. 21:45 Eye Response: spontaneous(4). Verbal Response: oriented(5). Motor Response: obeys mk commands(6). Total: 15. Procedures: 19:16 Central Line: the site was prepped with Betadine, in sterile fashion, a triple lumen cp catheter was inserted, in the right femoral vein, in 1 attempts. placement was verified, by blood return, the site was dressed with using sterile technique, the patient tolerated the procedure, well. MDM: 19:18 Patient medically screened. [facility] 11/13 18:22 Data reviewed: vital signs, nurses notes, lab test result(s), radiologic studies. kdr Counseling: I had a detailed discussion with the patient and/or guardian regarding: the historical points, exam findings, and any diagnostic results supporting the discharge/admit diagnosis, lab results, radiology results, the need for further work-up and treatment in the hospital. 11/12 18:25 Order name: Basic Metabolic Panel; Complete Time: 19:38 11/12 18:25 Order name: CBC with Diff; Complete Time: 19:35 11/12 18:25 Order name: LFT's; Complete Time: 19:38 11/12 18:25 Order name: Magnesium; Complete Time: 19:38 11/12 18:25 Order name: NT PRO-BNP; Complete Time: 19:38 11/12 18:25 Order name: PT-INR; Complete Time: 19:38 11/12 18:25 Order name: Troponin HS; Complete Time: 19:38 11/12 18:25 Order name: Type And Screen 11/12 18:25 Order name: AMMONIA; Complete Time: 19:06 11/12 18:25 Order name: ETOH Level; Complete Time: 19:38 11/12 18:31 Order name: Acetaminophen la1 11/12 18:31 Order name: Salicylate la11/12 18:48 Order name: COVID-19 SARS RT PCR (Document "Date of Onset" if Symptomatic); Complete bd Time: 20:50 11/12 19:00 Order name: PR[facility] 11/12 18:25 Order name: XRAY Chest (1 view) 11/12 19:03 Order name: RBC Leukoreduced (Pheresis 2) EDME 11/12 20:17 Order name: Fresh Frozen Plasma [facility] 11/12 18:25 Order name: EKG; Complete Time: 18:25 11/12 18:25 Order name: Cardiac monitoring; Complete Time: 19:09 11/12 18:25 Order name: EKG - Nurse/Tech; Complete Time: 19: 11/12 18:25 Order name: IV Saline Lock; Complete Time: 19: 11/12 18:25 Order name: Labs collected and sent; Complete Time: 19: 11/12 18:25 Order name: O2 Per Protocol; Complete Time: 18:33 11/12 18:25 Order name: O2 Sat Monitoring; Complete Time: 18:33 iw EC/16 19:41 Rate is 108 beats/min. Rhythm is regular. QRS Swiss is Normal. LA interval is normal. heike QRS interval is normal. QT interval is normal. No Q waves. T waves are Normal. No ST changes noted. Clinical impression: Sinus tachycardia. Interpreted by me. Reviewed by me. Administered Medications: 18:41 Drug: Zofran (Ondansetron) 4 mg Route: IVP; Site: right antecubital; jd3 20:00 Follow up: Response: No adverse reaction 18:42 Drug: NS 0.9% 1000 ml Route: IV; Rate: 1 bolus; Site: right antecubital; jd3 20:00 Follow up: Response: No adverse reaction; IV Status: Completed infusion; IV Intake: mk 1000ml 18:44 Drug: ProTONIX (pantoprazole) 80 mg Route: IVP; Site: right antecubital; iw 19:05 Follow up: Response: No adverse reaction mk 18:44 Drug: ProTONIX (pantoprazole) 8 mg/hr Route: IV; Rate: 25 ml/hr; Site: right iw antecubital; 21:45 Follow up: Response: No adverse reaction; IV Status: Infusion continued upon transfer; IV Intake: 75ml 18:50 Drug: Octreotide 50 mcg Route: IV; Rate: calculated rate; Site: left antecubital; jd3 21:00 Follow up: Response: No adverse reaction mk 21:00 Follow up: Response: No adverse reaction; IV Status: Completed infusion; IV Intake: 10mlmk 19:00 Drug: Zofran (Ondansetron) 4 mg Route: IVP; Site: right antecubital; jd3 20:00 Follow up: Response: No adverse reaction mk 19:10 Drug: Octreotide Infusion (50 mcg/hr) - (Octreotide 500 mcg, NS 0.9% 500 ml) Route: IV; ke1 Rate: 50 ml/hr; Site: left antecubital; 21:45 Follow up: Response: No adverse reaction; IV Status: Infusion continued upon transfer; mk IV Intake: 150ml 20:23 Drug: Rocephin (cefTRIAXone) 1 grams Route: IV; Rate: per protocol; Site: right femoral;al4 20:23 Follow up: IV Status: Completed infusion; IV Intake: 10ml al4 20:53 Follow up: Response: No adverse reaction; IV Status: Completed infusion; IV Intake: mk 100ml 21:00 Follow up: Response: No adverse reaction al4 20:42 Not Given (Not given on dayshift - zofran given instead. patient denies nausea at this al4 time ): Phenergan (promethazine) 12.5 mg IVP once 21:17 Drug: Vitamin K1 (phytonadione) 10 mg Route: Sub-Q; Site: right lower abdomen; al4 21:50 Follow up: Response: No adverse reaction al4 21:50 Follow up: Response: No adverse reaction mk Disposition: 19:43 Co-signature as Attending Physician, Martínez ePrez MD I agree with the assessment and heike plan of care. Disposition Summary: 11/12/21 19:46 Transfer Ordered Transfer Location: [facility] heike Reason: Higher level of care heike Condition: Serious heike Problem: an acute exacerbation heike Symptoms: have worsened heike Accepting Physician: to icu(11/12/21 22:16) al4 Diagnosis - GI Bleed/ Gastrointestinal hemorrhage, unspecified - upper heike - Alcohol abuse heike Forms: - Medication Reconciliation Form heike - SBAR form heike Signatures: Dispatcher [employer] EDMS ChrisMartínez MD MD cha Rittger, Kevin, MD MD kdr Williams, Irene RN RN iw Ramone Rivas, SOCIAL STUDIES DEPARTMENT CHAIR-C SOCIAL STUDIES DEPARTMENT CHAIR-Cla1 Martínez Muro PA PA cp Davies, Jonathon, RN RN jd3 Aaron Juan Kouassi, RN RN ke1 Rosemarie Arita RN mk Corrections: (The following items were deleted from the chart) 19: 19:01 Packed RBC Leukored ordered. EDMS EDMS 19:01 ABO/RH typing ordered. EDMS EDMS : 19:01 Antibody Screen ordered. EDMS EDMS 22:16 19:46 to icu heike al4
--- NOTE | 2021-11-12 19:47 | ER ---
Nurse's Notes [facility] Name: Gabe Ulrich Age: 26 yrs Sex: Male : 1995 Arrival Date: 11/12/2021 Time: 18:19 Bed 4 Private MD: Diagnosis: GI Bleed/ Gastrointestinal hemorrhage, unspecified-upper;Alcohol abuse Presentation: 11/12 18:24 Chief complaint: EMS states: "pt reported that he has been vomiting X 3 days with dark jd3 colored emesis and black tarry stools. low blood pressure 88/44. 22 G left forearm and 300 ml NS given. he also reported taking 'a lot' of Tylenol recently for his stomach pain.". Coronavirus screen: At this time, the client does not indicate any symptoms associated with coronavirus-19. Ebola Screen: No symptoms or risks identified at this time. Initial Sepsis Screen: Does the patient meet any 2 criteria? No. Patient's initial sepsis screen is negative. Does the patient have a suspected source of infection? No. Patient's initial sepsis screen is negative. Risk Assessment: Do you want to hurt yourself or someone else? Patient reports no desire to harm self or others. Onset of symptoms was November 09, 2021. 18:24 Method Of Arrival: EMS: [facility] jd3 18:24 Acuity: DEBBEI 2 jd3 Historical: - Allergies: 18:30 No Known Allergies; jd3 - Home Meds: 18:30 Unable to obtain [Active]; jd3 - PMHx: 18:30 Unable to Obtain; jd3 - PSHx: 18:30 Unable to Obtain; jd3 - Immunization history:: Adult Immunizations unknown. - Social history:: Smoking status: unknown. Screenin:33 Abuse screen: Denies threats or abuse. Nutritional screening: No deficits noted. jd3 Tuberculosis screening: No symptoms or risk factors identified. Fall Risk Ambulatory Aid- None/Bed Rest/Nurse Assist (0 pts). Gait- Normal/Bed Rest/Wheelchair (0 pts) Mental Status- Oriented to own ability (0 pts). Total Mendiola Fall Scale indicates No Risk (0-24 pts). Assessment: 18:30 Reassessment: Upon arrival to ER pt was hypotensive 74/54. Notified ERP. Administered ld1 1L NS. 18:30 Reassessment: verbal consent received via translation line for blood transfusion, ot iw unable to sign consent form at this time. 18:31 General: Appears uncomfortable, Behavior is cooperative, appropriate for age. Pain: jd3 Complains of pain in abdomen Quality of pain is described as sharp, tender. Neuro: Level of Consciousness is awake, alert, obeys commands, Oriented to person, place, time, situation. Cardiovascular: Denies chest pain, Rhythm is sinus tachycardia. Respiratory: Airway is patent Respiratory effort is even, unlabored, Respiratory pattern is regular, symmetrical. GI: Abdomen is flat, non-distended, Reports dark colored emesis and black tarry stools. : No signs and/or symptoms were reported regarding the genitourinary system. EENT: No signs and/or symptoms were reported regarding the EENT system. Derm: Skin is intact, Skin is dry, Skin is pale, Skin temperature is warm. Musculoskeletal: Circulation, motion, and sensation intact. Range of motion: intact in all extremities. 18:50 Reassessment: ERP at bedside assessing patient. ld1 19:00 Reassessment: Central line placed. Bright red emesis noted - 500mL. ld1 19:00 Reassessment: BP 118/50. ld1 19:25 Reassessment: 2 units PRBC infused emergently to central line, ordered by Dr. Menjivar, iw blood verified with Milana Basilio RN. 19:25 General: Appears uncomfortable, Behavior is cooperative. Pain: Denies pain. Neuro: mk Level of Consciousness is awake, alert, obeys commands, Oriented to person, place, time, situation. Cardiovascular: Heart tones S1 S2 present Capillary refill < 3 seconds in bilateral fingers toes JVD is absent Patient's skin is warm and dry. Pulses are 2+ in right radial artery, right dorsalis pedis artery, left radial artery and left dorsalis pedis artery Rhythm is sinus tachycardia. Respiratory: Airway is patent Trachea midline Respiratory effort is even, unlabored, Respiratory pattern is regular, symmetrical, Breath sounds are clear. GI: Abdomen is flat, non-distended, Pt is actively vomiting bright red blood, Bowel sounds Reports rectal bleeding. Derm: Skin is intact, Skin is dry, Skin is pale, Skin temperature is warm. 19:55 Reassessment: transfusions complete, pt hemodynamically stable at this time, denies iw nausea, warm blankets given, pt does not have family with him at this time. 20:11 Reassessment: Spoke to Cristina in lab to clarify the ABO/RH, antibody screen lab al4 order. Lab states his type and screen has been done so there is not a need for me to resend it. 20:25 Reassessment: Patient is awake, alert and oriented. Denies pain at this time. patient al4 is able to use cell phone. 21:30 Reassessment: patient had a BM dark loose stool. al4 21:30 Reassessment: Patient is alert, oriented x 3, equal unlabored respirations, skin al4 warm/dry/pink. 21:30 Reassessment: see paper charting for consent and platelet transfusion . al4 21:50 Reassessment: CLARICE [place] educated family at bedside on the phone number and address al4 of hospital as well as the need for transfer. Family demonstrated understanding of education. 21:50 Reassessment: platelet transfusion complete. patient is loaded onto EMS stretcher for al4 transfer. patient is not showing any signs of transfusion reaction at this time. patient is awake, alert and oriented. 22:00 Reassessment: called lab and spoke to Cristina to clarify what paperwork I need to al4 send back regarding the platelet transfusion. I sent back all required papers to Cristina. Vital Signs: 18:30 BP 93 / 42; Pulse 98; Resp 16 S; Temp 100.6(TE); Pulse Ox 99% on R/A; Pain 10/10; jd3 19:01 BP 118 / 50; Pulse 111; Resp 18; Pulse Ox 100% on R/A; ld1 19:25 BP 114 / 68; Pulse 107; Resp 15; Temp 100(O); Pulse Ox 100% ; mk 19:34 Weight 80 kg; mw2 19:56 BP 118 / 69; Pulse 110; Resp 16; Temp 100.0(TE); Pulse Ox 100% on R/A; iw 20:15 BP 123 / 62; Pulse 108; Resp 13; Pulse Ox 100% ; mk 20:30 BP 128 / 62; Pulse 109; Resp 14; Pulse Ox 100% ; mk 20:45 BP 109 / 54; Pulse 112; Resp 17; Pulse Ox 100% ; mk 21:00 BP 111 / 50; Pulse 117; Resp 11; Pulse Ox 100% ; mk 21:15 BP 112 / 64; Pulse 116; Resp 11; Pulse Ox 98% ; mk 21:30 BP 122 / 62; Pulse 114; Resp 18; Pulse Ox 100% ; mk 21:39 BP 89 / 60; Pulse 109; Resp 18; Temp 101.0(O); Pulse Ox 100% ; al4 21:44 BP 97 / 63; Pulse 114; Resp 15 S; Temp 100.6; Pulse Ox 100% on R/A; al4 21:49 BP 119 / 57; Pulse 111; Resp 14 S; Temp 100.8; Pulse Ox 100% ; al4 Anchor Coma Score: 20:15 Eye Response: spontaneous(4). Verbal Response: oriented(5). Motor Response: obeys mk commands(6). Total: 15. 20:30 Eye Response: spontaneous(4). Verbal Response: oriented(5). Motor Response: obeys mk commands(6). Total: 15. 20:45 Eye Response: spontaneous(4). Verbal Response: oriented(5). Motor Response: obeys mk commands(6). Total: 15. 21:00 Eye Response: spontaneous(4). Verbal Response: oriented(5). Motor Response: obeys mk commands(6). Total: 15. 21:15 Eye Response: spontaneous(4). Verbal Response: oriented(5). Motor Response: obeys mk commands(6). Total: 15. 21:30 Eye Response: spontaneous(4). Verbal Response: oriented(5). Motor Response: obeys mk commands(6). Total: 15. 21:45 Eye Response: spontaneous(4). Verbal Response: oriented(5). Motor Response: obeys mk commands(6). Total: 15. ED Course: 18:19 Patient arrived in ED. iw 18:21 Rome Menjivar MD is Attending Physician. kdr 18:30 Triage completed. jd3 18:31 Arm band placed on. jd3 18:33 Patient has correct armband on for positive identification. Placed in gown. Bed in low jd3 position. Call light in reach. Side rails up X2. gambling monitor on. Pulse ox on. NIBP on. 18:42 initiated transfer to [facility]. bd 18:50 Assisted provider with central line placement. Set up central line tray. Triple lumen ld1 line placed in right femoral. Line placed by Martínez SHERIDAN Placement verified by blood return, Dressed with Tegaderm, Patient tolerated well. Shaw cath inserted, using sterile technique, 16 Fr., returned clear yellow urine. Patient tolerated well. Inserted saline lock: 20 gauge in right antecubital area, using aseptic technique. Blood collected. Maintain EMS IV. Dressing intact. Good blood return noted. Site clean \\T\\ dry. Gauge \\T\\ site: 22 G LFA. 18:58 XRAY Chest (1 view) In Process Unspecified. EDMS 19:18 Attending Physician role handed off by Rome Menjivar MD cha 19:18 Martínez Perez MD is Attending Physician. heike 19:32 initiated a transfer with [facility] Transfer Center. mw2 19:33 initiated a transfer with Michelle from [facility]. mw2 19:33 RBC Leukoreduced (Pheresis 2) Sent. ld1 19:[address] Perez with the doctor from [facility]. mw2 19:40 [facility] denied due to capacity. mw2 19:44 Rosemarie Arita, RN is Primary Nurse. mk 19:45 COVID-19 SARS RT PCR (Document "Date of Onset" if Symptomatic) Sent. mk 20:00 initiated a transfer with Pola from [facility] Transfer [facility]. [facility] denied due to [facility] capacity. 20:02 initiated a transfer with [facility] Transfer [facility]. mw2 20:08 [facility] denied due to capacity. 2 20:13 [facility] only has a bed in [place], [place] Dr. Perez stated "the patient isn't stable to make [facility] it that far." Transfer was canceled to [facility]. 20:57 administrative approval given by Michelle Dejesus/ patient has been accepted to [address] to the MICU/ Dr. Watson accepted the patient in transfer/report to be called to [phone]. 21:50 Patient transferred, IV remains in place. al4 Administered Medications: 18:41 Drug: Zofran (Ondansetron) 4 mg Route: IVP; Site: right antecubital; jd3 20:00 Follow up: Response: No adverse reaction 18:42 Drug: NS 0.9% 1000 ml Route: IV; Rate: 1 bolus; Site: right antecubital; jd3 20:00 Follow up: Response: No adverse reaction; IV Status: Completed infusion; IV Intake: mk 1000ml 18:44 Drug: ProTONIX (pantoprazole) 80 mg Route: IVP; Site: right antecubital; iw 19:05 Follow up: Response: No adverse reaction mk 18:44 Drug: ProTONIX (pantoprazole) 8 mg/hr Route: IV; Rate: 25 ml/hr; Site: right iw antecubital; 21:45 Follow up: Response: No adverse reaction; IV Status: Infusion continued upon transfer; IV Intake: 75ml 18:50 Drug: Octreotide 50 mcg Route: IV; Rate: calculated rate; Site: left antecubital; jd3 21:00 Follow up: Response: No adverse reaction mk 21:00 Follow up: Response: No adverse reaction; IV Status: Completed infusion; IV Intake: 10mlmk 19:00 Drug: Zofran (Ondansetron) 4 mg Route: IVP; Site: right antecubital; jd3 20:00 Follow up: Response: No adverse reaction 19:10 Drug: Octreotide Infusion (50 mcg/hr) - (Octreotide 500 mcg, NS 0.9% 500 ml) Route: IV; ke1 Rate: 50 ml/hr; Site: left antecubital; 21:45 Follow up: Response: No adverse reaction; IV Status: Infusion continued upon transfer; IV Intake: 150ml 20:23 Drug: Rocephin (cefTRIAXone) 1 grams Route: IV; Rate: per protocol; Site: right femoral;al4 20:23 Follow up: IV Status: Completed infusion; IV Intake: 10ml al4 20:53 Follow up: Response: No adverse reaction; IV Status: Completed infusion; IV Intake: mk 100ml 21:00 Follow up: Response: No adverse reaction al4 20:42 Not Given (Not given on dayshift - zofran given instead. patient denies nausea at this al4 time ): Phenergan (promethazine) 12.5 mg IVP once 21:17 Drug: Vitamin K1 (phytonadione) 10 mg Route: Sub-Q; Site: right lower abdomen; al4 21:50 Follow up: Response: No adverse reaction al4 21:50 Follow up: Response: No adverse reaction Medication: 19:48 Blood products: PRBCs this RN taking over care, 2units PRBC completed upon this RN mk entering room. Intake: 20:00 IV: 1000ml; Total: 1000ml. mk 20:23 IV: 10ml; Total: 1010ml. al4 20:53 IV: 100ml; Total: 1110ml. mk 21:00 IV: 10ml; Total: 1120ml. mk 21:45 IV: 75ml; Total: 1195ml. mk 21:45 IV: 150ml; Total: 1345ml. mk Output: 21:29 Stool: 1 (Loose Stool) ; Total: 0ml. al4 21:50 Urine: 700ml (Shaw); Total: 700ml. al4 Outcome: 19:46 ER care complete, transfer ordered by . heike 21:54 Transferred by ground EMS to [facility], Note: transferred to IMU at [facility] report called to Bridget norris RN 21:54 critical 21:54 Instructed on the need for transfer. al4 22:16 Patient left the ED. al4 Signatures: Dispatcher [employer] EDMS Paris Olsen Corey, MD MD cha Rittger, Kevin, MD MD kdr Williams, Irene RN Jordan Valle RN Stevie Wilks Lauren, RN RN Aaron Barreto al4 Rosemarie Arita RN RN mk Ebrottie, Kouassi RN RN ke1 Corrections: (The following items were deleted from the chart) 19:59 19:25 Reassessment: 2 units PRBC infused emergently to central line , verified with ariel george 22:18 22:15 Reassessment: al4 al4 22:53 21:45 BP 89 / 60; Pulse 113bpm; Resp 14bpm; Pulse Ox 100%; mk al4 11/13 02:41 11/12 19:25 BP 114 / 68; Pulse 107bpm; Resp 15bpm; Pulse Ox 100%; ld1 11/13 02:48 11/12 21:54 Transferred by ground EMS to [facility], Note: transferred to IMU mk report called to Bridget norris RN 11/13 03:11 11/12 20:25 Reassessment: Patient is awake, alert and oriented. Denies pain at this al4 time. al4 11/13 03:12 11/12 19:21 Blood products: PRBCs this RN taking over care, 2units PRBC completed upon mk this RN entering room
[2021-11-12] MEDS ORDERED: CEFTRIAXONE 1000 MG/VIAL ONE (20:10)
[2021-11-12] MEDS ORDERED: VITAMIN K (ADULT) 10 MG/ML ONE (21:07)
--- NOTE | 2021-11-12 21:10 | RAD REPORT ---
EXAM DESCRIPTION: RAD - Chest Single View - 11/12/2021 7:57 pm CLINICAL HISTORY: GI bleed COMPARISON: Chest Single View dated 03/23/2021 FINDINGS: Lines: None. Lungs: No evidence of edema or pneumonia. Pleural: No significant pleural effusions or pneumothorax. Cardiac: The heart size is within normal limits. Bones: No acute fractures. Other: IMPRESSION: No acute cardiopulmonary disease.
[2021-11-12] MEDS ORDERED: NA CHLORIDE 0.9% 500 ML ONE (21:34)
[2021-11-12 23:47] VITALS: TEMP 100
[2021-11-12 23:54] VITALS: O2SAT 100
[2021-11-12 23:55] VITALS: BP 89/60
== END 2021-11-12 22:16 | disposition short-term general hospital (02) ==
LOC: ER 18:15
PROC: 06HT33Z Insertion of Infusion Device into Right Foot Vein, Percutaneous Approach (ICD-10-PCS; principal; 2021-11-12)
PROC: 30233K1 Transfusion of Nonautologous Frozen Plasma into Peripheral Vein, Percutaneous Approach (ICD-10-PCS; 2021-11-12)
PROC: 30233N1 Transfusion of Nonautologous Red Blood Cells into Peripheral Vein, Percutaneous Approach (ICD-10-PCS; 2021-11-12)
DX: R04.2 Hemoptysis (principal); F10.10 Alcohol abuse, uncomplicated
CPT/HCPCS: 36415; 36430; 51702; 71045; 80048; 80076; 80320; 80329; 82140; 83735; 83880; 84484; 85025; 85610; 86850; 86900; 86901; 93005; 96372; 99285; C9113; J2354; J2405; J3430; J7030; J7040; J7050; P9016; P9059; U0003

== ENCOUNTER 2022-03-20 13:57 | Emergency (ER) | payer SELFPAY ==
--- OUTSIDE RECORDS SUMMARY | 2022-03-20 14:00 | XMS REPORT | Continuity of Care Document ---
:1995 Author Organization [facility] t Address [address] [place] [address] Care Team Providers Name Role Phone Mark MARIEE, Chuck Martinez Attending Clinician Ligia LUO Attending Clinician Unavailable LORENA AWAD Admitting Clinician Unavailable Payers Payer Name Policy Type Policy Number Effective Date Expiration Date S ource Problems This patient has no known problems. Allergies, Adverse Reactions, Alerts Allergy Allergy Status Severity Reaction(s) Onset Inactive Treating Comm ents Source Name Type Date Date Clinician NO KNOWN Drug Active [facility] ALLERGIE [facility] Social History Social Habit Start Date Stop Date Quantity Comments Source Sex Assigned At [birth year] [facility] 00:00:00 00:00:00 Smoking Status Start Date Stop Date Source Tobacco smoking consumption unknown [facility] Medications This patient has no known medications. Procedures This patient has no known procedures. Encounters Start End Encounter Admission Attending Care Care Encounter Source Date/Time Date/Time Type Type Clinicians Facility Department ID 2021-03-23 2021-03-23 EXT [facility] OP Mark, CHERYL MSRDP [id number] [place] 00:00:00 00:00:00 Chuck Martinez LOCATION [id number] [facility] [id number] 2021-03-14 2021-03-14 Outpatient X NERI LUO [facility] [id number] [facility]08[facility] Results This patient has no known results.
--- NOTE | 2022-03-20 14:33 | EDPHYS ---
Physician Documentation [facility] Name: Gabe Ulrich Age: 26 yrs Sex: Male : 1995 Arrival Date: 03/20/2022 Time: 13:59 Bed 7 Private MD: ED Physician Rhett Schaffer HPI: 03/20 14:16 This 26 yrs old Male presents to ER via EMS with complaints of abdominal pain. rn 14:16 The patient presents with abdominal pain. The patient presents with abdominal pain that rn is diffuse. Onset: The symptoms/episode began/occurred yesterday. The symptoms do not radiate. Associated signs and symptoms: Pertinent positives: nausea, Pertinent negatives: diarrhea, fever. The symptoms are described as achy, crampy. Modifying factors: The symptoms are alleviated by nothing, the symptoms are aggravated by touching the area. Severity of pain: At its worst the pain was moderate in the emergency department the pain is unchanged. The patient has experienced similar episodes in the past. The patient has not recently seen a physician. Historical: - Allergies: 14:03 KNDA; jl7 - PMHx: 14:03 GI bleed; Cirrhosis of liver; jl7 - Immunization history:: Adult Immunizations unknown. - Social history:: Smoking status: unknown. - Family history:: not pertinent. - Hospitalizations: : No recent hospitalization is reported. ROS: 14:16 Constitutional: Negative for fever, chills, and weight loss, Eyes: Negative for injury, rn pain, redness, and discharge, Neck: Negative for injury, pain, and swelling, Cardiovascular: Negative for chest pain, palpitations, and edema, Respiratory: Negative for shortness of breath, cough, wheezing, and pleuritic chest pain, Abdomen/GI: + abd pain, and nausea Back: Negative for injury and pain, MS/Extremity: Negative for injury and deformity, Skin: Negative for injury, rash, and discoloration, Neuro: + generalized weakness Exam: 14:16 Constitutional: This is a well developed patient, appears jaundiced and ill Head/Face: rn Normocephalic, atraumatic. Eyes: Periorbital areas with no swelling, redness, or edema. ENT: dry MM with cracked lips Cardiovascular: Tachycardic, regular. No pulse deficits. Respiratory: No increased work of breathing, no retractions or nasal flaring. Abdomen/GI: soft, + tender in all 4 quadrants, + hemoccult Skin: Warm, dry MS/ Extremity: Pulses equal, no cyanosis. Neurovascular intact. Full, normal range of motion. Equal circumference. Neuro: Awake and alert, GCS 15 Vital Signs: 14:04 BP 111 / 39; Pulse 110; Resp 17 S; Temp 97.3(A); Pulse Ox 100% on R/A; Pain 10/10; jl7 15:09 BP 107 / 53; Pulse 101; Resp 19 S; Pulse Ox 100% on R/A; jd3 17:04 BP 106 / 40; Pulse 99; Resp 18 S; Pulse Ox 100% on R/A; jd3 18:08 BP 96 / 74; Pulse 99; Resp 18 S; Pulse Ox 100% on R/A; jd3 18:55 BP 104 / 62; Pulse 99; Resp 18 S; Pulse Ox 100% on R/A; jd3 20:00 BP 108 / 63; Pulse 102; Resp 18; Temp 97.4(O); Pulse Ox 100% on R/A; ll3 21:00 BP 105 / 63; Pulse 103; Resp 18; Pulse Ox 100% on R/A; ll3 22:00 BP 106 / 60; Pulse 101; Resp 17; Pulse Ox 100% on R/A; ll3 23:00 BP 108 / 59; Pulse 103; Resp 16; Pulse Ox 100% on R/A; ll3 03/21 00:00 BP 106 / 76; Pulse 105; Resp 18; Pulse Ox 100% on R/A; ll3 01:00 BP 108 / 60; Pulse 101; Resp 16; Pulse Ox 100% on R/A; ll3 02:30 BP 106 / 44; Pulse 104; Resp 17; Pulse Ox 100% on R/A; ll3 MDM: 03/20 14:00 Patient medically screened. rn 14:30 Differential diagnosis: bowel obstruction, gastritis, gastroesophageal reflux disease, rn GI Bleed, non-specific abd pain, Peptic Ulcer Disease. Data reviewed: vital signs, nurses notes, lab test result(s), and as a result, I will admit patient. Counseling: I had a detailed discussion with the patient and/or guardian regarding: the historical points, exam findings, and any diagnostic results supporting the discharge/admit diagnosis, lab results, the need for further work-up and treatment in the hospital, the need to transfer to another facility, for higher level of care, [facility] does not immediately have the required specialist. 03/20 14:01 Order name: CBC with Diff; Complete Time: 15:29 rn 03/20 14:01 Order name: CMP; Complete Time: 15:25 rn 03/20 14:01 Order name: Lipase; Complete Time: 15:25 rn 03/20 14:01 Order name: Type And Screen rn 03/20 14:02 Order name: Lactate; Complete Time: 15:25 rn 03/20 14:07 Order name: ETOH Level; Complete Time: 15:25 03/20 14:01 Order name: CT Abd/Pelvis - IV Contrast Only; Complete Time: 16:07 03/20 14:08 Order name: Blood Culture Adult (2) 03/20 14:23 Order name: SARS-COV-2 RT PCR (Document "Date of Onset" if Symptomatic); Complete Time: jd3 16:03/20 15:28 Order name: Protime (+inr); Complete Time: 18:57 03/20 15:28 Order name: Ptt, Activated; Complete Time: 18:57 03/20 15:33 Order name: Packed RBC Leukored EDNV 03/20 19:03 Order name: Lactate Sepsis 2 HR Follow-up EDNV 03/21 00:42 Order name: CBC w/o diff ll3 03/20 14:01 Order name: IV Saline Lock; Complete Time: 14:44 03/20 14:01 Order name: Labs collected and sent; Complete Time: 14:45 rn 03/20 14:01 Order name: XRAY Chest (1 view); Complete Time: 15:25 rn Administered Medications: 15:08 Drug: Zofran (Ondansetron) 4 mg Route: IVP; Site: left upper arm; jd3 16:00 Follow up: Response: No adverse reaction jd3 15:08 Drug: NS 0.9% 1000 ml Route: IV; Rate: 1000 ml; Site: left upper arm; jd3 16:00 Follow up: Response: No adverse reaction; IV Status: Completed infusion jd3 15:08 Drug: ProTONIX (pantoprazole) 40 mg Route: IVP; Site: left upper arm; jd3 16:00 Follow up: Response: No adverse reaction jd3 15:08 Drug: Octreotide 50 mcg Route: IV; Rate: calculated rate; Site: left upper arm; jd3 18:56 Follow up: Response: No adverse reaction; IV Status: Completed infusion jd3 16:00 Drug: Rocephin (cefTRIAXone) 1 grams Route: IV; Rate: calculated rate; Site: left upper [facility] arm; 17:00 Follow up: Response: No adverse reaction; IV Status: Completed infusion jd3 16:04 Drug: ProTONIX (pantoprazole) 8 mg/hr Route: IV; Rate: 25 ml/hr; Site: left upper arm; jd3 18:56 Follow up: Response: No adverse reaction; IV Status: Infusion continued upon transfer jd3 16:04 Drug: Octreotide Infusion (50 mcg/hr) - (Octreotide 500 mcg, NS 0.9% 500 ml) Route: IV; jd3 Rate: 50 ml/hr; Site: right antecubital; 18:56 Follow up: Response: No adverse reaction; IV Status: Infusion continued upon transfer jd3 Point of Care Testing: Guaiac: 14:25 Stool Guaiac: Positive; Stool Hemoccult Control: Pass; rn Disposition Summary: 03/20/22 14:32 Transfer Ordered Transfer Location: [facility] rn Reason: Higher level of care rn Condition: Stable rn Problem: new rn Symptoms: have improved rn Accepting Physician: Wilmer [facility](03/21/22 02:44) ll3 Diagnosis - GI Bleed/ Gastrointestinal hemorrhage, unspecified rn Forms: - Medication Reconciliation Form rn - SBAR form rn Signatures: Dispatcher [employer] EDMS Rhett Schaffer MD MD rn Leal, Jahala, RN RN jl7 Jordan Patiño RN RN jd3 Cheyanne Farrar Lynsea, RN RN ll3 Corrections: (The following items were deleted from the chart) 14:25 14:16 Constitutional: This is a well developed patient, appears jaundiced and ill rn Head/Face: Normocephalic, atraumatic. Eyes: Periorbital areas with no swelling, redness, or edema. ENT: dry MM with cracked lips Cardiovascular: Tachycardic, regular. No pulse deficits. Respiratory: No increased work of breathing, no retractions or nasal flaring. Abdomen/GI: soft, + tender in all 4 quadrants, + hemoccult Skin: Warm, dry MS/ Extremity: Pulses equal, no cyanosis. Neurovascular intact. Full, normal range of motion. Equal circumference. Neuro: Awake and alert, GCS 15 18:02 14:32 Dr. bowen 03/21 02:44 03/20 18:02 Dr. Pedraza, [facility] ll3
--- NOTE | 2022-03-20 14:33 | ER ---
Nurse's Notes [facility] Name: Gabe Ulrich Age: 26 yrs Sex: Male : 1995 Arrival Date: 03/20/2022 Time: 13:59 Bed 7 Private MD: Diagnosis: GI Bleed/ Gastrointestinal hemorrhage, unspecified Presentation: 03/20 14:01 Chief complaint: EMS states: "pt is from home reporting abdominal pain. pt has a jl7 history of cirrhosis and GI bleed, but has not reported any bloody stool just vomiting. the pt is distended on his abdomen.". Coronavirus screen: At this time, the client does not indicate any symptoms associated with coronavirus-19. Ebola Screen: No symptoms or risks identified at this time. Initial Sepsis Screen: Does the patient meet any 2 criteria? No. Patient's initial sepsis screen is negative. Does the patient have a suspected source of infection? No. Patient's initial sepsis screen is negative. Risk Assessment: Do you want to hurt yourself or someone else? Patient reports no desire to harm self or others. Onset of symptoms was March 20, 2022. 14:01 Method Of Arrival: EMS: [facility] 14:01 Acuity: DEBBIE 2 jl7 Historical: - Allergies: 14:03 KNDA; jl7 - PMHx: 14:03 GI bleed; Cirrhosis of liver; jl7 - Immunization history:: Adult Immunizations unknown. - Social history:: Smoking status: unknown. - Family history:: not pertinent. - Hospitalizations: : No recent hospitalization is reported. Screenin:12 Abuse screen: Denies threats or abuse. Nutritional screening: No deficits noted. jd3 Tuberculosis screening: No symptoms or risk factors identified. Fall Risk Ambulatory Aid- None/Bed Rest/Nurse Assist (0 pts). Gait- Normal/Bed Rest/Wheelchair (0 pts) Mental Status- Oriented to own ability (0 pts). Total Mendiola Fall Scale indicates No Risk (0-24 pts). Assessment: 14:13 General: Appears uncomfortable, Behavior is cooperative, appropriate for age. Pain: jd3 Complains of pain in abdomen Quality of pain is described as sharp, tender. Neuro: Murguia Agitation-Sedation Scale (RASS): 0 - Alert and Calm Level of Consciousness is awake, obeys commands, lethargic, Oriented to person, place, time, situation. Cardiovascular: Denies chest pain. Respiratory: Airway is patent Respiratory effort is even, unlabored, Respiratory pattern is regular, symmetrical, Denies cough, shortness of breath. GI: Abdomen is flat, round Reports lower abdominal pain, upper abdominal pain, nausea. : No signs and/or symptoms were reported regarding the genitourinary system. EENT: No signs and/or symptoms were reported regarding the EENT system. Derm: Skin is intact, Skin is dry, Skin is jaundiced, pale, Skin temperature is cool. Musculoskeletal: Circulation, motion, and sensation intact. Range of motion: intact in all extremities. 15:09 Reassessment: No changes from previously documented assessment. Patient and/or family jd3 updated on plan of care and expected duration. Pain level reassessed. Patient is alert, oriented x 3, equal unlabored respirations, skin warm/dry/pink. 16:05 Reassessment: No changes from previously documented assessment. Patient and/or family jd3 updated on plan of care and expected duration. Pain level reassessed. Patient is alert, oriented x 3, equal unlabored respirations, skin warm/dry/pink. blood transfusion started, see blood administration paperwork. 17:04 Reassessment: No changes from previously documented assessment. Patient and/or family jd3 updated on plan of care and expected duration. Pain level reassessed. Patient is alert, oriented x 3, equal unlabored respirations, skin warm/dry/pink. 18:07 Reassessment: Patient appears in no apparent distress at this time. Patient and/or jd3 family updated on plan of care and expected duration. Pain level reassessed. Patient is alert, oriented x 3, equal unlabored respirations, skin warm/dry/pink. report attempt made to [facility] ICU and was told the pt need to receive all 3 units of RBC's and have Hgb rechecked, charge nurse and provider notified. 18:54 Reassessment: 1 of 3 units done. jd3 20:00 Reassessment: No changes from previously documented assessment. Patient and/or family ll3 updated on plan of care and expected duration. Pain level reassessed. Patient is alert, oriented x 3, equal unlabored respirations, skin warm/dry/pink. 21:00 Reassessment: No changes from previously documented assessment. Patient and/or family ll3 updated on plan of care and expected duration. Pain level reassessed. Patient is alert, oriented x 3, equal unlabored respirations, skin warm/dry/pink. 22:00 Reassessment: No changes from previously documented assessment. Patient and/or family ll3 updated on plan of care and expected duration. Pain level reassessed. Patient is alert, oriented x 3, equal unlabored respirations, skin warm/dry/pink. 23:00 Reassessment: No changes from previously documented assessment. Patient and/or family ll3 updated on plan of care and expected duration. Pain level reassessed. Patient is alert, oriented x 3, equal unlabored respirations, skin warm/dry/pink. 03/21 00:33 Reassessment: No changes from previously documented assessment. Patient and/or family ll3 updated on plan of care and expected duration. Pain level reassessed. Patient is alert, oriented x 3, equal unlabored respirations, skin warm/dry/pink. 01:30 Reassessment: No changes from previously documented assessment. Patient and/or family ll3 updated on plan of care and expected duration. Pain level reassessed. Patient is alert, oriented x 3, equal unlabored respirations, skin warm/dry/pink. Vital Signs: 03/20 14:04 BP 111 / 39; Pulse 110; Resp 17 S; Temp 97.3(A); Pulse Ox 100% on R/A; Pain 10/10; jl7 15:09 BP 107 / 53; Pulse 101; Resp 19 S; Pulse Ox 100% on R/A; jd3 17:04 BP 106 / 40; Pulse 99; Resp 18 S; Pulse Ox 100% on R/A; jd3 18:08 BP 96 / 74; Pulse 99; Resp 18 S; Pulse Ox 100% on R/A; jd3 18:55 BP 104 / 62; Pulse 99; Resp 18 S; Pulse Ox 100% on R/A; jd3 20:00 BP 108 / 63; Pulse 102; Resp 18; Temp 97.4(O); Pulse Ox 100% on R/A; ll3 21:00 BP 105 / 63; Pulse 103; Resp 18; Pulse Ox 100% on R/A; ll3 22:00 BP 106 / 60; Pulse 101; Resp 17; Pulse Ox 100% on R/A; ll3 23:00 BP 108 / 59; Pulse 103; Resp 16; Pulse Ox 100% on R/A; ll3 03/21 00:00 BP 106 / 76; Pulse 105; Resp 18; Pulse Ox 100% on R/A; ll3 01:00 BP 108 / 60; Pulse 101; Resp 16; Pulse Ox 100% on R/A; ll3 02:30 BP 106 / 44; Pulse 104; Resp 17; Pulse Ox 100% on R/A; ll3 ED Course: 03/20 13:59 Patient arrived in ED. eb 14:00 Rhett Schaffer MD is Attending Physician. rn 14:01 Jorge Turner, CLARICE is Primary Nurse. jl7 14:03 Triage completed. jl7 14:05 Arm band placed on. jl7 14:09 Primary Nurse role handed off by Jorge Turner, RN jd3 14:09 Jordan Patiño, CLARICE is Primary Nurse. jd3 14:09 Maintain EMS IV. Dressing intact. Good blood return noted. Site clean \\T\\ dry. Gauge \\T\\ diana 3 site: 22 G left upper arm. 14:12 Patient has correct armband on for positive identification. Bed in low position. Call jd3 light in reach. Side rails up X2. Adult w/ patient. 14:45 XRAY Chest (1 view) In Process Unspecified. EDMS 14:45 Inserted saline lock: 22 gauge in right antecubital area, using aseptic technique. jd3 Blood collected. 15:08 Inserted saline lock: 22 gauge in right antecubital area, using aseptic technique. jd3 15:35 initiated a transfer with Mauricio Guajardo from the [facility]. eb 15:46 CT Abd/Pelvis - IV Contrast Only In Process Unspecified. EDMS 15:[address] Matta the hospitalist correctional officer chief for [facility] with Dr. Schaffer for eb patient transfer consultation. 16:23 connected the awning hanger helper correctional officer chief for [facility] with Dr. Schaffer for patient eb transfer consultation. 17:54 administrative approval given by Radha Arias Rn/ patient has been accepted to [facility] ICU I204/ Dr. Pedraza has accepted the patient in transfer/ report to be called to the transfer center at [phone]. 18:00 Inserted saline lock: 22 gauge in left antecubital area, using aseptic technique. Blood zm collected. 03/21 02:39 No provider procedures requiring assistance completed. Patient transferred, IV remains ll3 in place. Administered Medications: 03/20 15:08 Drug: Zofran (Ondansetron) 4 mg Route: IVP; Site: left upper arm; jd3 16:00 Follow up: Response: No adverse reaction jd3 15:08 Drug: NS 0.9% 1000 ml Route: IV; Rate: 1000 ml; Site: left upper arm; jd3 16:00 Follow up: Response: No adverse reaction; IV Status: Completed infusion jd3 15:08 Drug: ProTONIX (pantoprazole) 40 mg Route: IVP; Site: left upper arm; jd3 16:00 Follow up: Response: No adverse reaction jd3 15:08 Drug: Octreotide 50 mcg Route: IV; Rate: calculated rate; Site: left upper arm; jd3 18:56 Follow up: Response: No adverse reaction; IV Status: Completed infusion jd3 16:00 Drug: Rocephin (cefTRIAXone) 1 grams Route: IV; Rate: calculated rate; Site: left upper jd3 arm; 17:00 Follow up: Response: No adverse reaction; IV Status: Completed infusion jd3 16:04 Drug: ProTONIX (pantoprazole) 8 mg/hr Route: IV; Rate: 25 ml/hr; Site: left upper arm; jd3 18:56 Follow up: Response: No adverse reaction; IV Status: Infusion continued upon transfer jd3 16:04 Drug: Octreotide Infusion (50 mcg/hr) - (Octreotide 500 mcg, NS 0.9% 500 ml) Route: IV; jd3 Rate: 50 ml/hr; Site: right antecubital; 18:56 Follow up: Response: No adverse reaction; IV Status: Infusion continued upon transfer jd3 Medication: 14:12 VIS not applicable for this client. jd3 Point of Care Testing: Guaiac: 14:25 Stool Guaiac: Positive; Stool Hemoccult Control: Pass; rn Outcome: 14:32 ER care complete, transfer ordered by MD. bowen 03/21 02:39 Transferred by ground EMS to [facility], Transfer form completed. ll3 X-rays sent w/ patient. Condition: stable Discharge instructions given to EMS, Instructed on the need for transfer, Demonstrated understanding of instructions. 02:44 Patient left the ED. ll3 Signatures: Dispatcher [employer] EDRhett Rodriguez MD MD rn Leal, Jahala RN RN jl7 Jordan Patiño RN RN Cheyanne Kimbrough Lynsea, RN RN ll3 Halle Willingham Corrections: (The following items were deleted from the chart) 03/20 14:45 14:13 Derm: Skin is intact, Skin is dry, Skin is normal, Skin temperature is warm jd3 j 16:11 15:[address] Matta the awning hanger helper correctional officer chief for [facility] with Dr. Schaffer for eb patient transfer consultation. eb 16:24 15:[address] Matta the awning hanger helper correctional officer chief for [facility] with Dr. sybil Schaffer for patient transfer consultation. eb 18:55 18:07 Reassessment: Patient appears in no apparent distress at this time. Patient jd3 and/or family updated on plan of care and expected duration. Pain level reassessed. Patient is alert, oriented x 3, equal unlabored respirations, skin warm/dry/pink. report attempt made to [facility] ICU and was told the pt need to receive all 3 units of RBC's and have Hgb rechecked. jd3
[2022-03-20] MEDS ORDERED: PANTOPRAZOLE INJ 80 MG in NA CHLORIDE 0.9% 250 ML IV SCH (15:00)
[2022-03-20] MEDS ORDERED: OCTREOTIDE 500 MCG in NA CHLORIDE 0.9% 500 ML IV SCH (15:00)
[2022-03-20] MEDS ORDERED: PANTOPRAZOLE 40 MG INJ ONE (15:01)
[2022-03-20] MEDS ORDERED: ONDANSETRON 4 MG/2 ML VIAL ONE (15:01)
[2022-03-20] MEDS ORDERED: NA CHLORIDE 0.9% 1,000 ML ONE (15:01)
[2022-03-20] MEDS ORDERED: OCTREOTIDE ACETATE 100 MCG/ML ONE (15:01)
--- NOTE | 2022-03-20 15:01 | RAD REPORT ---
EXAM DESCRIPTION: RAD - Chest Single View - 03/20/2022 2:43 pm CLINICAL HISTORY: DYSPNEA COMPARISON: Portable 11/12/2021 TECHNIQUE: AP portable chest image was obtained 03/20/2022 2:43 pm . FINDINGS: Lung volumes are very low resulting in lung base atelectasis. Supine positioning accentuat es the exam limitations. Lung base and posterior gutter infiltrates cannot be excluded. Significant f ailure or volume overload pattern not seen. Heart size is magnified by supine portable technique. Upper lobe vasculature within normal limits. Tr achea is midline. No pneumothorax or large pleural effusion. No acute bony abnormality seen. No acute aortic findings suspected. IMPRESSION: Limited shallow inspiration supine portable exam showing lung base atelectasis. Lung base assessment is limited. Mid and upper lung bernardo are unremarkable.
[2022-03-20 15:22] LABS: Albumin 1.5 g/dL (3.4-5.0); Bilirubin Total 1.2 mg/dL (0.2-1.0); Potassium 4.2 mmol/L (3.5-5.1); Protein, Total 4.7 g/dL (6.4-8.2)
[2022-03-20 15:24] LABS: Absolute Lymphocytes (CBC) 1.8 K/uL (0.7-4.9); Hematocrit 6.8 % (39.6-49.0); Lymphocytes % 11.2 % (15.3-44.8); MPV 7.2 fL (7.6-11.3); RBC Red Blood Cell Count 0.97 M/uL (4.33-5.43)
[2022-03-20] MEDS ORDERED: NA CHLORIDE 0.9% 50 ML ONE (15:47)
[2022-03-20] MEDS ORDERED: CEFTRIAXONE 1000 MG/VIAL ONE (15:47)
[2022-03-20] MEDS ORDERED: NA CHLORIDE 0.9% 500 ML ONE (15:52)
--- NOTE | 2022-03-20 16:05 | RAD REPORT ---
EXAM DESCRIPTION: CT - Abdomen Pelvis W Contrast - 03/20/2022 3:44 pm CLINICAL HISTORY: Abdominal pain, acute, nonlocalized, patient provided history of cirrhosis COMPARISON: No comparisons TECHNIQUE: Biphasic, helical CT imaging of the abdomen and pelvis was performed following 100 ml non -ionic IV contrast. No oral contrast administered. All CT scans are performed using dose optimization technique as appropriate and may include automated exposure control or mA/KV adjustment according to patient size. FINDINGS: No suspicious findings in the lung bases. Liver is abnormal. There is a nodular liver capsule present consistent with the history of cirrhosis. A focal liver parenchymal lesion is not seen. No portal vein thrombosis. Gallbladder wall appears sl ightly edematous. Gallstones can be occult. No biliary tree dilatation. No splenomegaly or focal sple moe finding. No acute pancreatic process seen. Symmetric renal function is seen with no hydronephrosis or suspicious renal mass. No pyelonephritis o r acute parenchymal process. Urinary bladder is mostly contracted which accentuates wall thickness. N o asymmetric wall thickening, mass or bladder calculus. No adrenal abnormalities. Stomach lumen is filled with mixture of air, fluid and food. Gastric cadet do appear slightly thicken ed and edematous. A discrete mass or large area of ulceration not identified. Duodenum, jejunum and i leum loops all show circumferential wall thickening and edema without abnormal dilatation. No dilated or abnormal appendix. Colon wall thickening is also present without dilatation. This is more pronoun erendira in the rectum. No mesenteric ischemic findings. No arterial thrombosis seen. Bowel wall abnormali ties are likely due to electrolyte imbalance related to the underlying liver parenchymal disease. Mild to moderate volume of ascites present. No free air or pneumatosis. No hernia, mass or bulky lym phadenopathy. No suspicious bony findings. IMPRESSION: Liver cirrhosis with no focal liver lesion. Mild to moderate volume of ascites. Bowel wall thickening and edema involving the stomach, small bowel and colon. This is likely metaboli c due to liver dysfunction rather than gastroenteritis. No bowel obstruction, free air or other surgically emergent finding.
[2022-03-20 18:16] LABS: Protime INR 1.91
[2022-03-20] MEDS ORDERED: NA CHLORIDE 0.9% 250 ML ONE (20:08)
[2022-03-21 01:27] LABS: RBC Red Blood Cell Count 2.31 M/uL (4.33-5.43)
[2022-03-21 01:32] LABS: Hematocrit 18.1 % (39.6-49.0)
[2022-03-21] MEDS ORDERED: NA CHLORIDE 0.9% 250 ML ONE (01:46)
[2022-03-21] MEDS ORDERED: PANTOPRAZOLE 40 MG INJ ONE (01:46)
[2022-03-21] MEDS ORDERED: NA CHLORIDE 0.9% 500 ML ONE (01:46)
[2022-03-21] MEDS ORDERED: OCTREOTIDE ACETATE 100 MCG/ML ONE (01:47)
[2022-03-21 02:58] VITALS: O2SAT 100
[2022-03-21 03:06] VITALS: TEMP 97.4
[2022-03-21 03:15] VITALS: BP 106/44
== END 2022-03-21 02:44 | disposition short-term general hospital (02) ==
LOC: ER 13:57
PROC: 30233N1 Transfusion of Nonautologous Red Blood Cells into Peripheral Vein, Percutaneous Approach (ICD-10-PCS; principal; 2022-03-21)
DX: K92.2 Gastrointestinal hemorrhage, unspecified (principal); Z20.822 Contact with and (suspected) exposure to COVID-19
CPT/HCPCS: 36415; 71045; 74177; 80053; 80320; 83605; 83690; 85025; 85027; 85610; 85730; 86850; 86900; 86901; 87040; 99285; C9113; J2354; J2405; J7030; J7040; J7050; P9016; Q9967; U0003